=== PATIENT | female | born 1945 | race Caucasian/White ===

== ENCOUNTER → 2017-10-19 | Day surgery (SDC) | payer MEDICARE ==
[~2017-10-19] MED LIST: ARTH650T6 PO; BUPIVACAINE HCL PF 0.75% 30 ML VIAL ONE; CHOL1CAP8 PO; FLAX100013 PO; GABA300C5 PO; LISI-515 PO; MULTTAB67 PO; PROPOFOL 200 MG/20 ML AMP IV ONE; RED600TA PO; REST0.05 EACH EYE; TRIAMCINOLONE ACETONIDE 40 MG/ML VIAL I-ARTICULR ONE; VITA500T83 PO
--- NOTE | 2017-10-19 09:07 | M6 ---
cc: Paulette Dockery MD DATE: 10/19/2017 PROCEDURE PERFORMED: Fluoroscopically guided left lumbar facet joints (left L3-4, L4-5, and L5-S1 facet joints). History and physical was completed and signed. Consent was signed. Procedure site was marked. Medications were listed and reconciled. Pain score was recorded. Allergies were noted. Time out was taken. Fluoroscopy time was recorded where applicable. Sedation was administered or directed by Dr. Dockery. The patient was given oxygen. The patient was monitored by a registered nurse. Total procedure time was greater than 15 minutes. PROCEDURE NOTE: IV was started. Blood pressure cuff, pulse oximeter and EKG were applied. The patient was placed in the prone position on a Mani table, sedated with small amounts of Propofol titrated to effect. Vital signs were monitored and remained stable throughout the procedure. The lumbar area was prepped with alcohol and 10% Betadine solution and draped with sterile drapes. Fluoroscopy was used to visualize the left lumbar facet joints at L3-4, L4-5 and L5-S1. Separate sterile 3.5-inch, 25-gauge spinal needles were advanced into these joints under fluoroscopic guidance. There was negative aspiration for blood or any other type of fluid and the patient was given 1 mL of 0.5% Marcaine, 10 mg of Kenalog at each location. Following this, the patient was taken to the recovery room with stable vital signs, neurologically intact. We will evaluate the patient immediately and with followup to determine if she has a significant reduction in her pain and a corresponding increase in her functional capabilities. MD ANDERS Martini/SANDRA , 08:55 AM , 09:07 AM
== END | disposition home or self-care (01) ==
LOC: PHSDC 07:20
PROVIDERS: ATTEND Pain Medicine Interventional Pain Medicine
DX: M54.5 Low back pain (principal)
CPT/HCPCS: 64493; 64494; 64495; 99152; J3301

== ENCOUNTER → 2017-10-28 | Day surgery (SDC) | payer MEDICARE ==
[~2017-10-28] MED LIST changes: +ALEV220T14 PO; +BUPIVACAINE HCL PF 0.5% 30 ML VIAL ONE; -BUPIVACAINE HCL PF 0.75% 30 ML VIAL ONE; +PYRI25TA PO; +methylPREDNISolone ACETATE 40 MG/ML VIAL I-ARTICULR ONE
--- NOTE | 2017-10-28 08:54 | M6 ---
cc: Paulette Dockery MD DATE: 10/28/2017 PROCEDURE: Fluoroscopically-guided injection, bilateral sacroiliac joints. History and physical was completed and signed. Consent was signed. Procedure site was marked. Medications were listed and reconciled. Pain score was recorded. Allergies were noted. Time out was taken. Fluoroscopy time was recorded where applicable. Sedation was administered or directed by Dr. Dockery. The patient was given oxygen. The patient was monitored by a registered nurse. Total procedure time was greater than 15 minutes. PROCEDURE NOTE: IV was started. Blood pressure cuff, pulse oximeter and EKG were applied. The patient was placed in the prone position on a Mani table, sedated with small amounts of propofol titrated to effect. Vital signs were monitored and remained stable throughout the procedure. The lumbar area was prepped with alcohol and 10% Betadine solution, draped with sterile drapes. Fluoroscopy was used shooting for medial to lateral to clearly visualize the bilateral sacroiliac joints. Separate sterile 5 inch, 22-gauge spinal needles were advanced into the joints under fluoroscopic guidance. There was negative aspiration for blood or any other type of fluid and at each location, the patient was given 2 mL of 0.5% Marcaine, 20 mg of Depo-Medrol, 20 mg of Kenalog. Following the procedure, the patient was taken to the recovery room with stable vital signs neurologically intact. She will be evaluated immediately and with followup to determine if she has a subjective decrease in her usual pain and a corresponding objective increase in her functional capabilities. Paulette Dockery MD [facility] , 08:43 AM , 08:53 AM
== END | disposition home or self-care (01) ==
LOC: PHSDC 07:22
PROVIDERS: ATTEND Pain Medicine Interventional Pain Medicine
DX: M54.9 Dorsalgia, unspecified (principal)
CPT/HCPCS: 99152; G0260; J1030; J3301; 27096